=== PATIENT | female | born 1950 | race African-American/Black ===

== ENCOUNTER 2017-09-25 18:20 | Emergency (ER) | payer BC, MEDICARE ==
[~2017-09-25] VITALS: Ht 170.2 cm; Wt 67.1 kg
--- NOTE | 2017-09-25 19:22 | NUR ---
Patient discharged to home in stable conditon. Written and verbal after care instructions given. Patient verbalizes understanding of instructions. Patient left ER. VSS. No acute distress noted. All belongings with pt.
[2017-09-25 19:24] VITALS: BP 112/74
== END 2017-09-25 19:24 | disposition home or self-care (01) ==
LOC: ER 18:24
DX: S93.601A Unspecified sprain of right foot, initial encounter (principal); X50.9XXA Other and unspecified overexertion or strenuous movements or postures, initial encounter; Y93.89 Activity, other specified; Y92.89 Other specified places as the place of occurrence of the external cause; Y99.8 Other external cause status
CPT/HCPCS: 73630; A4663